=== PATIENT | female | born 1995 | race Caucasian/White ===

== ENCOUNTER 2019-09-01 00:57 | Emergency (ER) | payer SELFPAY ==
--- NOTE | 2019-09-01 01:24 | EDM.PDOC ---
ED HPI GENERAL MEDICAL PROBLEM - General Stated Complaint: SORE THROAT Time Seen by Provider: 09/01/19 01:23 Source of Information: Reports: Patient History Limitations: Reports: No Limitations - History of Present Illness INITIAL COMMENTS - FREE TEXT/NARRATIVE: Patient is a 24-year-old female is complaining having a severe sore throat which started this evening. She states when she tries to swallow lights like razor blades in her throat. She denies any swelling of her throat or any trouble breathing. She denies any fever or chills. She is not nauseous and not vomiting. Patient denies any recent rash but states she has had a rash around her neck for the past year. She denies being short of breath. She denies being itchy. He denies any new foods or medications. She has been using a new soap recently. She has her usual smoker's cough in the morning otherwise no respiratory symptoms. Onset: Today Duration: Hour(s): (4) Location: Reports: Face Quality: Reports: Sharp Severity: Moderate Improves with: Reports: None Worsens with: Reports: Eating Associated Symptoms: Reports: No Other Symptoms Throat Pain Score (Numeric/FACES): 3 - Related Data Allergies Allergy/AdvReac Type Severity Reaction Status Date / Time No Known Allergies Allergy Verified 05/17/14 20:27 ED ROS ENT - Review of Systems Review Of Systems: Comprehensive ROS is negative, except as noted in HPI. ED EXAM, ENT - Physical Exam Exam: See Below Exam Limited By: No Limitations General Appearance: Alert, No Apparent Distress Mouth/Throat: Normal Inspection. No: Dry Mucous Membrane, Muffled Voice, Peritonsillar Mass, Pharyngeal Erythema, Throat Swelling, Tonsillar Erythema Head: Atraumatic, Normocephalic Neck: Normal Inspection, Supple, Non-Tender. No: Lymphadenopathy (L), Lymphadenopathy (R) Respiratory/Chest: No Respiratory Distress, Lungs Clear, Normal Breath Sounds. No: Wheezing Cardiovascular: Regular Rate, Rhythm, No Edema, No JVD Extremities: Normal Inspection Neurological: Alert Psychiatric: Normal Affect, Normal Mood Skin: Warm, Dry, No Rash Course - Vital Signs Text/Narrative:: Patient's rapid strep was negative. She will be given some ibuprofen. I am discharging her home at this time. Last Recorded V/S: Last Vital Signs Temp 36.2 C 09/01/19 01:25 Pulse 98 09/01/19 01:25 Resp 20 09/01/19 01:25 BP 134/99 H 09/01/19 01:25 Pulse Ox 98 09/01/19 01:25 - Orders/Labs/Meds Orders: Active Orders 24 hr Category Date Time Status CULTURE STREP A CONFIRMATION [RM] Stat Lab 09/01/19 01:30 Results STREP SCRN A RAPID W CULT CONF [RM] Stat Lab 09/01/19 01:30 Results Meds: Medications Discontinued Medications Generic Name Dose Route Start Last Admin Trade Name Brady PRN Reason Stop Dose Admin Ibuprofen 600 mg 09/01/19 01:30 09/01/19 01:41 Motrin PO 09/01/19 01:31 600 mg ONETIME ONE Administration Departure - Departure Time of Disposition: 01:55 Disposition: Home, Self-Care 01 Condition: Good Clinical Impression: Pharyngitis - Discharge Information Instructions: Pharyngitis, [id number] Referrals: Amos Silver MD [Primary Care Provider] - Additional Instructions: Liquid ibuprofen as needed. Salt water gargles as directed. Return to ER if worse. Follow-up with PCP if not improving. Care Plan Goals: The following information is given to patients seen in the emergency department who are being discharged to home. This information is to outline your options for follow-up care. We provide all patients seen in our emergency department with a follow-up referral. The need for follow-up, as well as the timing and circumstances, are variable depending upon the specifics of your emergency department visit. If you don't have a primary care physician on staff, we will provide you with a referral. We always advise you to contact your personal physician following an emergency department visit to inform them of the circumstance of the visit and for follow-up with them and/or the need for any referrals to a consulting specialist. The emergency department will also refer you to a specialist when appropriate. This referral assures that you have the opportunity for follow-up care with a specialist. All of these measure are taken in an effort to provide you with optimal care, which includes your follow-up. Under all circumstances we always encourage you to contact your private physician who remains a resource for coordinating your care. When calling for follow-up care, please make the office aware that this follow-up is from your recent emergency room visit. If for any reason you are refused follow-up, please contact the [facility] Emergency Department at and asked to speak to the emergency department charge nurse. Sepsis Event Note - Focused Exam Vital Signs: Vital Signs Temp Pulse Resp BP Pulse Ox 09/01/19 01:25 36.2 C 98 20 134/99 H 98 Date Exam was Performed: 09/01/19 Time Exam was Performed: 01:54 - My Orders Last 24 Hours: My Active Orders 09/01/19 01:30 CULTURE STREP A CONFIRMATION [RM] Stat STREP SCRN A RAPID W CULT CONF [RM] Stat - Assessment/Plan Last 24 Hours: My Active Orders 09/01/19 01:30 CULTURE STREP A CONFIRMATION [RM] Stat STREP SCRN A RAPID W CULT CONF [RM] Stat
[2019-09-01] MEDS ORDERED: Ibuprofen 600 MG Tab PO ONE (01:30)
[2019-09-01 02:29] VITALS: BP 126/74; PULSE 80
== END 2019-09-01 02:00 | disposition home or self-care (01) ==
LOC: MW.ED 00:57
DX: J02.9 Acute pharyngitis, unspecified (principal)
CPT/HCPCS: 87081; 87880; 99283; A9270; 99282

== ENCOUNTER 2024-08-07 13:26 | Emergency (ER) | payer SELFPAY ==
[2024-08-07 14:13] VITALS: BP 149/97; PULSE 104
== END 2024-08-07 14:13 | disposition home or self-care (01) ==
LOC: MW.ED 13:26
DX: J01.00 Acute maxillary sinusitis, unspecified (principal); F17.210 Nicotine dependence, cigarettes, uncomplicated; Z79.899 Other long term (current) drug therapy
CPT/HCPCS: 99283

== ENCOUNTER 2024-08-17 20:30 | Emergency (ER) | payer SELFPAY ==
[2024-08-18] MEDS: Cyclobenzaprine 10 MG Tab PO ONE (00:32)
[2024-08-18 02:20] VITALS: BP 106/76; PULSE 70
== END 2024-08-18 02:20 | disposition home or self-care (01) ==
LOC: MW.ED 20:30
DX: M26.602 Left temporomandibular joint disorder, unspecified (principal); F17.210 Nicotine dependence, cigarettes, uncomplicated
CPT/HCPCS: 70150; 70486; 87651; 99284; A9270; 99283